=== PATIENT | male | born 2005 | race Caucasian/White ===

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

== ENCOUNTER 2025-03-08 21:27 | Emergency (ER) | payer OTHER ==
[~2025-03-08] VITALS: Ht 175.3 cm; Wt 124.1 kg
[2025-03-08] MEDS ORDERED: methylPREDNISolone 4 MG HOME.PACK PO ONE (21:45)
[2025-03-08 21:52] VITALS: BP 152/106
== END 2025-03-08 21:53 | disposition home or self-care (01) ==
LOC: ED 21:27
DX: H69.83 Other specified disorders of Eustachian tube, bilateral (principal); Z88.0 Allergy status to penicillin; Z88.8 Allergy status to other drugs, medicaments and biological substances
CPT/HCPCS: 99282

== ENCOUNTER 2025-06-29 22:53 | Emergency (ER) | payer OTHER ==
[~2025-06-29] VITALS: Ht 182.9 cm; Wt 134.8 kg
[2025-06-29] MEDS ORDERED: GABAPENTIN 300 MG CAP PO ONE (23:30)
[2025-06-29] MEDS ORDERED: GABAPENTIN100 MG PO (23:39)
[2025-06-29] MEDS ORDERED: methylPREDNISolone 4 MG HOME.PACK PO ONE (23:45)
[2025-06-29 23:59] VITALS: BP 142/87
--- OUTSIDE RECORDS SUMMARY | 2025-06-30 03:08 | XMS ---
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 Current FAMILY PHONE: [phone] Juan has no Care Guidelines for this patient. EDarin VISIT COUNT (12 MO.) [facility] TOTAL 6 NOTE: Visits indicate total known visits. ED/UCC VISIT TRACKING (12 MO.) 06/29/2025 22:54 [facility] [place] TYPE: Emergency COMPLAINT: - EXTEMITY PAIN 03/11/2025 15:48 [facility] [place] TYPE: Emergency COMPLAINT: - BILATERAL EAR PAIN 03/10/2025 23:24 [facility] [place] TYPE: Emergency COMPLAINT: - EARPAIN 03/08/2025 21:28 [facility] [place] TYPE: Emergency COMPLAINT: - EAR PAIN DIAGNOSES: - Allergy status to other drugs, medicaments and biological substances - Allergy status to penicillin - Otalgia, bilateral - Other specified disorders of Eustachian tube, bilateral 07/18/2024 20:05 [facility] [place] TYPE: Emergency COMPLAINT: - HAND INJURY DIAGNOSES: - Allergy status to other drugs, medicaments and biological substances - Allergy status to penicillin - Contusion of right hand, initial encounter - Other skilled nursing (current) drug therapy - Pain in right hand - Struck by dog, initial encounter 07/04/2024 23:52 [facility] [place] TYPE: Emergency COMPLAINT: - KNEE PAIN DIAGNOSES: - Allergy status to other anti-infective agents - Allergy status to penicillin - Exposure to other specified factors, initial encounter - Pain in right knee - Sprain of unspecified site of right knee, initial encounter INPATIENT VISIT TRACKING (12 MO.) No inpatient visits to display in this time frame [id number]
== END 2025-06-29 23:50 | disposition home or self-care (01) ==
LOC: ED 22:53
DX: M54.12 Radiculopathy, cervical region (principal); Z88.8 Allergy status to other drugs, medicaments and biological substances
CPT/HCPCS: 72040; 99284; A9270